=== PATIENT | male | born 1990 | race Caucasian/White ===

== ENCOUNTER → 2020-01-14 | Outpatient (CLI) | payer OTHER ==
[~2020-01-14] MED LIST: AMOCLA875 PO; PERM5TC TOP; SULTRIDS PO; TRAM50 PO
[2020-01-17 06:09] LABS: CHLAMYDIA TRACHOMATIS, NAA Negative (Negative)
== END | disposition home or self-care (01) ==
LOC: LAB SHORT 19:30 → LAB EV 19:30
PROVIDERS: Family Medicine
DX: N34.2 Other urethritis (principal)
CPT/HCPCS: 87491; 87591

== ENCOUNTER 2024-05-30 19:38 | Emergency (ER) | payer OTHER ==
[~2024-05-30] VITALS: Ht 172.7 cm; Wt 68.0 kg
[2024-05-30 19:56] VITALS: BP 118/78
== END 2024-05-30 21:51 | disposition home or self-care (01) ==
LOC: ER 19:38
DX: S61.212A Laceration without foreign body of right middle finger without damage to nail, initial encounter (principal); W25.XXXA Contact with sharp glass, initial encounter
CPT/HCPCS: 12001; 99282-25